=== PATIENT | female | born 1945 | race Caucasian/White ===

== ENCOUNTER 2025-07-10 18:52 | Inpatient (IN) | payer MEDICARE ==
[~2025-07-10 18:52] MED LIST: Iopamidol-370 76% 500 ML MDV (1 ML CHARGE) ONE
[2025-07-10] MEDS ORDERED: Ondansetron PF 4 MG/2 ML Vial ONE (19:47)
[2025-07-10 19:50] LABS: ALT (SGPT) 26 U/L (F: <34 M: <45); AST (SGOT) 41 U/L (11-34); Albumin 3.0 g/dL (3.1-4.5); Alkaline Phosphatase 56 U/L (40-110); Anion Gap 18 mmol/L (10-20); BUN (Urea Nitrogen) 20 mg/dL (8.4-25.7); Bilirubin, Total 0.2 mg/dL (0.3-1.2); Calcium 9.0 mg/dL (7.8-10.44); Carbon Dioxide 21 mmol/L (23-31); Chloride 100 mmol/L (98-107); Globulin 4.7 g/dL (2.4-3.5); Glucose 134 mg/dL (83-110); Potassium 3.8 mmol/L (3.5-5.1); Sodium 135 mmol/L (136-145)
[2025-07-10 19:54] LABS: #Basophils Less than 0.03 10x3/uL (0.0-0.2); #Eosinophils Less than 0.03 10x3/uL (0.0-0.7); #Monocytes 0.34 10x3/uL (0.11-0.59); #Neutrophils 5.59 10x3/uL (1.40-6.50); %Basophils 0.2 % (0.0-1.0); %Eosinophils 0.0 % (0.0-10.0); %Lymphocytes 8.7 % (21.0-51.0); %Monocytes 5.2 % (0.0-10.0); %Neutrophils 85.4 % (42.0-75.0); Hematocrit 34.7 % (36.0-52.0); Hemoglobin 11.5 g/dL (12.0-18.0); Mean Corpuscular Hemoglobin 28.5 pg (27.0-31.0); Mean Corpuscular Volume 85.9 fL (78.0-98.0); Platelet Count 224 10x3/uL (130-400); Red Blood Cell (RBC) Count 4.04 mill/uL (4.20-6.10); White Blood Cell (WBC) Count 6.54 10x3/uL (4.8-10.8)
[2025-07-10 20:13] LABS: Actual Bicarbonate (HCO3v) 19.9 mEq/L (22-28); Base Excess -3.8 mEq/L (-2.0 to +3.0); Calcium, Ionized (venous) 1.14 mmol/L (1.16-1.32); Chloride (VBG) 99 mmol/L (98-106); Hematocrit-VBG 48 % (36.0-47.0); Hemoglobin (Hb) 16.3 g/dL (11.7-16.1); Potassium (VBG) 3.94 mmol/L (3.70-5.30); Sodium 135 mmol/L (133-146)
[2025-07-10 20:33] LABS: INR-International Normal Ratio 1.2; Prothrombin Time 15.3 sec (12.0-14.7)
[2025-07-10 20:34] LABS: PTT 28.8 sec (22.9-36.1)
[2025-07-10] MEDS ORDERED: Cefepime 2 GM VIAL ONE (20:48)
[2025-07-10 21:07] LABS: Cocaine Metabolite Screen Negative (Negative); THC/Cannabinoid Screen Negative (Negative); Tricyclic Screen Negative (Negative)
[2025-07-10 21:10] LABS: Lipase 17 U/L (8-78)
[2025-07-10 21:12] LABS: Acetaminophen Less than 10 mcg/mL (Less than 10); Salicylate Less than 8.0 mg/dL (Less than 8.0)
[2025-07-10 21:13] LABS: Bacteria/HPF None Seen HPF (None Seen); CAUTI Indications for Culture Alt mental st,lethar; Glucose, Urine (Dipstick) Normal (Negative); Leukocyte Negative Leu/uL (Negative); Protein, Urine (Dipstick) 30 mg/dL (Neg-Trace); Specific Gravity, Urine 1.021 (1.002-1.036); WBC/HPF 0-3 HPF (0-3)
[2025-07-10 21:16] LABS: Urine Culture Reflex No No
[2025-07-10] MEDS ORDERED: Ondansetron PF 4 MG/2 ML Vial IVP PRN (23:51)
[2025-07-11] MEDS: Vancomycin 1.25 GM / NS 250 ML VIAL-2-BAG IVPB SCH (00:09)
[2025-07-11 00:15] VITALS: BMI 21.7
[2025-07-11] MEDS ORDERED: cefTRIAXone (ROCEPHIN) 2 GM VIAL ONE (00:27)
[2025-07-11] MEDS: cefTRIAXone\\ROCEPHIN 2 GM in Sodium Chloride 0.9% 100 ML IVPB SCH (00:36)
[2025-07-11] MEDS: Dexamethasone 10 MG/ML VIAL SLOW IVP SCH (04:32)
[2025-07-11 05:29] LABS: #Basophils Less than 0.03 10x3/uL (0.0-0.2); #Eosinophils Less than 0.03 10x3/uL (0.0-0.7); #Monocytes 1.14 10x3/uL (0.11-0.59); #Neutrophils 4.86 10x3/uL (1.40-6.50); %Basophils 0.1 % (0.0-1.0); %Eosinophils 0.0 % (0.0-10.0); %Lymphocytes 14.1 % (21.0-51.0); %Monocytes 16.2 % (0.0-10.0); %Neutrophils 69.2 % (42.0-75.0); Hematocrit 31.2 % (36.0-47.0); Hemoglobin 10.3 g/dL (12.0-16.0); Mean Corpuscular Hemoglobin 28.7 pg (27.0-31.0); Mean Corpuscular Volume 86.9 fL (78.0-98.0); Platelet Count 184 10x3/uL (130-400); Red Blood Cell (RBC) Count 3.59 mill/uL (4.20-5.40); White Blood Cell (WBC) Count 7.03 10x3/uL (4.8-10.8)
[2025-07-11 05:45] LABS: Anion Gap 15 mmol/L (10-20); BUN (Urea Nitrogen) 20 mg/dL (9.8-20.1); CK (CPK) 786 U/L (29-168); Calc. Creatinine Clearance 64 mL/min (70-130); Calcium 8.5 mg/dL (7.8-10.44); Carbon Dioxide 19 mmol/L (23-31); Chloride 106 mmol/L (98-107); Glucose 119 mg/dL (83-110); Potassium 3.6 mmol/L (3.5-5.1); Sodium 136 mmol/L (136-145)
[2025-07-11] MEDS ORDERED: Acyclovir Sodium 500 mg (10 mL) Vial IVPB SCH (06:00)
[2025-07-11] MEDS ORDERED: Sodium Bicarbonate 2.5 MEQ/5 ML SDV ONE (08:59)
[2025-07-11] MEDS: Enoxaparin 40 MG (0.4 mL) SYRINGE SC SCH (09:36)
[2025-07-11 14:01] LABS: Unspun CSF Color PINK (Colorless)
[2025-07-11 14:07] LABS: Color Of CSF Supernatant COLORLESS (Colorless)
[2025-07-11 14:20] LABS: CSF, Glucose 62 mg/dl (40-70); CSF, Protein 53.3 mg/dL (15-40)
[2025-07-11 14:22] LABS: CSF Source CSF
[2025-07-11 14:47] LABS: Cell Count Non Hematic 3 %
[2025-07-11] MEDS: levETIRAcetam 500 MG (5 mL) VIAL SLOW IVP SCH (18:02)
[2025-07-12] MEDS: FLU (Fluad Triv) 25-26 (65UP)PF 45 MCG/0.5 ML Syringe IM ONE (11:15)
[2025-07-12] MEDS: PNEUMOC 20-VAL CONJ-DIP CRM/PF 0.5 ML SYRINGE IM ONE (11:15)
[2025-07-12 12:54] LABS: Reference Lab Name LABCORP
[2025-07-14 08:24] LABS: Anion Gap 13 mmol/L (10-20); BUN (Urea Nitrogen) 12 mg/dL (9.8-20.1); CK (CPK) 132 U/L (29-168); Calc. Creatinine Clearance 82 mL/min (70-130); Calcium 8.3 mg/dL (7.8-10.44); Carbon Dioxide 23 mmol/L (23-31); Chloride 106 mmol/L (98-107); Glucose 96 mg/dL (83-110); Potassium 3.0 mmol/L (3.5-5.1); Sodium 139 mmol/L (136-145)
[2025-07-14] MEDS ORDERED: PHOS-NAK 1 PKT PACK PO PRN (09:45)
[2025-07-14] MEDS ORDERED: Magnesium Sulfate In Water 4 GM in Premix 1 BAG IVPB PRN (09:45)
[2025-07-14] MEDS: Electrolyte Replacement Protocol 1 EACH FS ONE (09:56)
[2025-07-14 14:05] LABS: Potassium 3.3 mmol/L (3.5-5.1)
[2025-07-15 04:53] LABS: Anion Gap 7 mmol/L (10-20); BUN (Urea Nitrogen) 10 mg/dL (9.8-20.1); Calc. Creatinine Clearance 75 mL/min (70-130); Calcium 8.6 mg/dL (7.8-10.44); Carbon Dioxide 26 mmol/L (23-31); Chloride 107 mmol/L (98-107); Glucose 96 mg/dL (83-110); Magnesium 2.2 mg/dL (1.6-2.6); Potassium 3.3 mmol/L (3.5-5.1); Sodium 137 mmol/L (136-145)
[2025-07-15] MEDS: Potassium Chloride 20 MEQ in Premix 1 BAG IVPB PRN (05:46)
[2025-07-16 04:11] LABS: Anion Gap 11 mmol/L (10-20); BUN (Urea Nitrogen) 11 mg/dL (9.8-20.1); Calc. Creatinine Clearance 71 mL/min (70-130); Calcium 8.6 mg/dL (7.8-10.44); Carbon Dioxide 27 mmol/L (23-31); Chloride 105 mmol/L (98-107); Glucose 108 mg/dL (83-110); Potassium 3.4 mmol/L (3.5-5.1); Sodium 140 mmol/L (136-145)
[2025-07-17 04:13] LABS: Anion Gap 12 mmol/L (10-20); BUN (Urea Nitrogen) 10 mg/dL (9.8-20.1); Calc. Creatinine Clearance 76 mL/min (70-130); Calcium 8.3 mg/dL (7.8-10.44); Carbon Dioxide 26 mmol/L (23-31); Chloride 106 mmol/L (98-107); Glucose 95 mg/dL (83-110); Potassium 3.5 mmol/L (3.5-5.1); Sodium 140 mmol/L (136-145)
[2025-07-17 10:07] VITALS: BP 138/78; TEMP 97.9
[2025-07-17 10:32] VITALS: BMI 21.7
== END 2025-07-17 13:55 | DRG 97 ==
LOC: ERS 18:52 → EDBD 18:52 → EDSEX 18:52 → ERHOLD 23:51 → PCU 07-11 06:04
PROVIDERS: ADMIT Internal Medicine; ATTEND Family Medicine
PROC: XX20X89 Monitoring of Brain Electrical Activity, Computer-aided Detection and Notification, New Technology Group 9 (ICD-10-PCS; principal; 2025-07-10)
PROC: 009U3ZZ Drainage of Spinal Canal, Percutaneous Approach (ICD-10-PCS; 2025-07-11)
PROC: B01B1ZZ Fluoroscopy of Spinal Cord using Low Osmolar Contrast (ICD-10-PCS; 2025-07-11)
PROC: 4A00X4Z Measurement of Central Nervous Electrical Activity, External Approach (ICD-10-PCS; 2025-07-12)
PROC: 0T9B70Z Drainage of Bladder with Drainage Device, Via Natural or Artificial Opening (ICD-10-PCS; 2025-07-13)
PROC: 3E03329 Introduction of Other Anti-infective into Peripheral Vein, Percutaneous Approach (ICD-10-PCS; 2025-07-14)
DX: A85.8 Other specified viral encephalitis (principal); G93.41 Metabolic encephalopathy; A87.9 Viral meningitis, unspecified; J90 Pleural effusion, not elsewhere classified; M62.82 Rhabdomyolysis; R56.9 Unspecified convulsions; Z60.2 Problems related to living alone; E87.6 Hypokalemia
CPT/HCPCS: 36415; 36416; 51702; 62270; 70450; 70551; 71045; 71260; 74177; 80048; 80053; 80306; 80307; 81001; 82550; 82805; 82945; 83605; 83690; 83735; 84100; 84132; 84157; 84443; 84484; 85025; 85060; 85610; 85730; 86141; 87040; 87070; 87086; 87205; 87255; 87428; 87498; 87798; 89051; 93005; 93010; 94760; 95700; 95711; 95957; 96365; 96366; 96367; 96375; J0133; J0290; J0692; J0696; J1100; J1650; J1953; J2405; J3373; J3480; J7030; J7050; Q9967